=== PATIENT | female | born 1975 | race Caucasian/White ===

== ENCOUNTER 2017-09-05 22:57 | Emergency (ER) | payer MEDICAID ==
[~2017-09-05] VITALS: Ht 157.5 cm; Wt 84.0 kg
[~2017-09-05 22:57] MED LIST: MECL-109 PO
[2017-09-06] MEDS ORDERED: KETOROLAC 60MG/2ML VIAL IM ONE (00:30)
[2017-09-06] MEDS ORDERED: ONDANSETRON 4MG ODT PO ONE (00:30)
[2017-09-06 00:45] VITALS: BP 138/79
== END 2017-09-06 01:35 | disposition home or self-care (01) ==
LOC: ER 22:58
DX: R51 Headache (principal)
CPT/HCPCS: 81025; 96372; 99283; J1885; Q0162; Z7610

== ENCOUNTER 2017-10-24 16:51 | Emergency (ER) | payer MEDICAID ==
[~2017-10-24] VITALS: Ht 157.5 cm; Wt 82.0 kg
[2017-10-24 20:05] VITALS: BP 133/59
== END 2017-10-24 20:24 | disposition home or self-care (01) ==
LOC: ER 18:04
DX: H11.31 Conjunctival hemorrhage, right eye (principal)
CPT/HCPCS: 99281